=== PATIENT | male | born 1970 | race Caucasian/White ===

== ENCOUNTER 2016-08-13 12:00 | Observation (INO) | payer MEDICAID, OTHER ==
[2016-08-07 13:52] LABS: BASOPHILS % (AUTO) 0.6 % (0.0-2.0); EOSINOPHILS % (AUTO) 3.4 % (1.0-6.0); HEMATOCRIT 46.3 % (41-53); HEMOGLOBIN 15.3 g/dL (13.5-17.5); LYMPHOCYTES # (AUTO) 1.9 K/uL (1.0-4.8); LYMPHOCYTES % (AUTO) 29.4 % (22.0-44.0); MEAN CORPUSCULAR HEMOGLOBIN 31.6 pg (26.0-34.0); MEAN CORPUSCULAR VOLUME 96 fL (80-100); MONOCYTES # (AUTO) 0.7 K/uL (0.1-1.0); MONOCYTES % (AUTO) 10.3 % (2.0-9.0); NEUTROPHILS # (AUTO) 3.7 K/uL (1.8-7.7); NEUTROPHILS % (AUTO) 56.3 % (40.0-70.0); PLATELET COUNT (AUTO) 273 K/uL (150-450); RED BLOOD CELL COUNT(AUTO) 4.84 MIL/uL (4.50-5.90); RED CELL DISTRIBUTION WIDTH 12.6 % (11.5-14.5); WHITE BLOOD COUNT (AUTO) 6.6 K/uL (4.5-11.0)
[2016-08-07 13:59] LABS: ANION GAP 7 mmol/L (8-16); CALCIUM, TOTAL 9.3 mg/dL (8.8-10.5); CARBON DIOXIDE 30 mmol/L (22-29); CHLORIDE 103 mmol/L (98-107); GLOMERULAR FILTR. RATE CALC > 60 mL/min (>60); POTASSIUM 4.5 mmol/L (3.5-5.1); SODIUM SERUM 140 mmol/L (136-145); UREA NITROGEN, BLOOD 16 mg/dL (7-18)
[2016-08-07 14:05] LABS: PROTHROMBIN TIME 10.3 SEC (9.4-11.6)
[2016-08-07 14:06] LABS: ALANINE AMINOTRANSFERASE 52 U/L (12-78); ALBUMIN 3.8 g/dL (3.4-5.0); ASPARTATE AMINOTRANSFERASE 19 U/L (15-37); BILIRUBIN,TOTAL 0.5 mg/dL (0.1-1.0); TOTAL PROTEIN, SERUM 7.7 g/dL (6.4-8.2)
[~2016-08-13] VITALS: Ht 180.3 cm; Wt 90.0 kg
[2016-08-23] MEDS ORDERED: RINGERS SOLUTION,LACTATED 1,000 ML IV ONE ×2 (05:00→05:09)
[2016-08-23] MEDS: VANCOMYCIN HCL 1 GM/VIAL ONE ×2 (06:00→07:35)
[2016-08-23] MEDS: BUPIVACAINE HCL/PF 0.5% 30 ML VIAL ONE ×2 (06:01→06:47)
[2016-08-23] MEDS ORDERED: CeFAZolin 2 GM/DEXTROSE 50 ML IV ONE (06:15)
[2016-08-23] MEDS ORDERED: ACETAMINOPHEN 1000 MG/ISO-OSM 100 ML IV ONE (06:17)
[2016-08-23] MEDS ORDERED: DiphenhydrAMINE HCL 50 MG/ML VIAL IVP PRN (06:30)
[2016-08-23] MEDS ORDERED: ONDANSETRON HCL 4 MG/2 ML VIAL IVP PRN ×2 (06:30→07:00)
[2016-08-23] MEDS ORDERED: ZOLPIDEM TARTRATE 10 MG TABLET PO PRN (06:30)
[2016-08-23] MEDS ORDERED: DEXAMETHASONE SOD PHOS 4 MG/ML VIAL IVP PRN (06:30)
[2016-08-23] MEDS ORDERED: OxyCODONE HCL/ACETAMINOPHEN 10-325 MG TABLET PO PRN ×2 (07:00→16:45)
[2016-08-23] MEDS ORDERED: PROMETHAZINE HCL 25 MG/ML VIAL IM PRN (07:00)
[2016-08-23] MEDS ORDERED: ZOLPIDEM TARTRATE 5 MG TABLET PO PRN (07:00)
[2016-08-23] MEDS ORDERED: HYDROmorphone 2 MG/ML SYRINGE IVP PRN ×2 (07:00)
[2016-08-23] MEDS ORDERED: FentaNYL CITRATE-PF 100 MCG/2 ML VIAL IVP PRN (07:00)
[2016-08-23] MEDS ORDERED: CYCLOBENZAPRINE HCL 10 MG TABLET PO PRN (07:00)
[2016-08-23] MEDS ORDERED: MEPERIDINE-PF 25 MG/ML SYRINGE IVP PRN (07:00)
[2016-08-23] MEDS ORDERED: OXYGEN THERAPY IH SCH (08:00)
[2016-08-23] MEDS ORDERED: MEPERIDINE-PF 25 MG/ML SYRINGE ONE (08:08)
[2016-08-23] MEDS ORDERED: HYDROmorphone 2 MG/ML SYRINGE ONE (08:08)
[2016-08-23 09:10] VITALS: BP 137/104
[2016-08-23 09:30] VITALS: BP 121/83
[2016-08-23 10:15] VITALS: BP 121/83
[2016-08-23] MEDS ORDERED: PNEUMOCOCCAL VACCINE POLYVALENT 0.5 ML VIAL [PPSV23] IM ONE (11:45)
[2016-08-23] MEDS ORDERED: ACETAMINOPHEN 1000 MG/ISO-OSM 100 ML IV SCH (12:00)
[2016-08-23 15:53] VITALS: BP 133/86
[2016-08-23] MEDS ORDERED: PROPOFOL 1% 20 ML VIAL IVP ONE (17:28)
[2016-08-23] MEDS ORDERED: ONDANSETRON HCL 4 MG/2 ML VIAL IVP ONE (17:28)
[2016-08-23] MEDS ORDERED: 0.9% SODIUM CHLORIDE 10 ML VIAL IVP ONE (17:28)
[2016-08-23] MEDS ORDERED: LIDOCAINE HCL/PF 2% 5 ML VIAL INJ ONE (17:28)
[2016-08-23] MEDS ORDERED: MIDAZOLAM HCL 2 MG/2 ML VIAL IVP ONE (17:28)
[2016-08-23] MEDS ORDERED: SUCCINYLCHOLINE CHLORIDE 20 MG/ML 10 ML VIAL IVP ONE (17:28)
[2016-08-23] MEDS ORDERED: DEXAMETHASONE SOD PHOS 4 MG/ML VIAL IVP ONE (17:28)
[2016-08-23] MEDS ORDERED: FentaNYL CITRATE-PF 100 MCG/2 ML VIAL IVP ONE (17:28)
[2016-08-23] MEDS ORDERED: MORPHINE SULFATE/PF 0.5 MG/ML 10 ML AMP IVP ONE (17:28)
== END 2016-08-23 17:29 | disposition home or self-care (01) ==
LOC: 4E 08-23 05:30
PROVIDERS: ADMIT Orthopaedic Surgery Orthopaedic Surgery of the Spine; ATTEND Orthopaedic Surgery Orthopaedic Surgery of the Spine
DX: M51.26 Other intervertebral disc displacement, lumbar region (principal); M79.604 Pain in right leg
CPT/HCPCS: 36415; 63030; 80053; 85025; 85610; 85730; 87081; 96374; 96375; 97161; 97165; 97535; G0378; J0131; J0330; J0690 ×2; J1100; J1170; J2175; J2250; J2274; J2405; J2704; J3010; J3370; J3490 ×2; J7120